=== PATIENT | male | born 1990 | race Caucasian/White ===

== ENCOUNTER 2023-10-07 16:30 | Emergency (ER) | payer BC, OTHER ==
[~2023-10-07] VITALS: Ht 188 cm; Wt 73.5 kg
[2023-10-07 18:07] VITALS: BP_SYST 142; PULSE 85; RESP 18; TEMP 98.3; O2SAT 98
[2023-10-07] MEDS ORDERED: GLUCAGON,HUMAN RECOMBINANT 1 MG VIAL ONE (18:51)
[2023-10-07] MEDS: GLUCAGON,HUMAN RECOMBINANT 1 MG VIAL IM ONE (19:01)
[2023-10-07 20:03] VITALS: BP_SYST 124; PULSE 75; RESP 18; TEMP 97.8; O2SAT 96
== END 2023-10-07 20:03 | disposition home or self-care (01) ==
LOC: SED 16:30
DX: T18.128A Food in esophagus causing other injury, initial encounter (principal); W44.F3XA Food entering into or through a natural orifice, initial encounter; Y93.89 Activity, other specified; Y92.89 Other specified places as the place of occurrence of the external cause; Y99.8 Other external cause status
CPT/HCPCS: 99283; 96372; J1610